=== PATIENT | female | born 1980 | race Caucasian/White ===

== ENCOUNTER 2025-10-16 07:50 | Emergency (ER) | payer BC ==
[~2025-10-16] VITALS: Ht 162.6 cm; Wt 59.0 kg
[2025-10-16 08:02] VITALS: TEMP 98.3
[2025-10-16 08:24] LABS: PLATELET COUNT (AUTO) 267 K/uL (150-450); RED BLOOD CELL COUNT(AUTO) 4.54 MIL/uL (4.0-5.2); RED CELL DISTRIBUTION WIDTH 13.3 % (11.5-15.0); WHITE BLOOD COUNT (AUTO) 10.6 K/uL (4.3-11.0)
[2025-10-16] MEDS: IV NS 0.9% 1,000 ML BAG IV ONE (08:28)
[2025-10-16 08:29] LABS: PREGNANCY TEST URINE QUAL NEGATIVE (NEGATIVE)
[2025-10-16 08:41] LABS: CALCIUM, SERUM 9.8 mg/dL (8.5-10.1); CREATININE 0.9 mg/dL (0.6-1.3); PHOSPHORUS 3.5 mg/dL (2.5-4.9); SODIUM SERUM 138 mmol/L (136-145); UREA NITROGEN, BLOOD 8 mg/dL (7-18)
[2025-10-16 08:44] LABS: ASPARTATE AMINOTRANSFERASE 26 U/L (15-37); TOTAL PROTEIN, SERUM 8.3 g/dL (6.4-8.2)
[2025-10-16 10:27] VITALS: BP 112/50; O2SAT 98
== END 2025-10-16 10:05 | disposition home or self-care (01) ==
LOC: ER 07:57
DX: E06.3 Autoimmune thyroiditis (principal); R53.83 Other fatigue
CPT/HCPCS: 99285; 96360; 71045; 93005; 85025; 80048; 80076; 83735; 84100; 84703; 36415; 84443; 84484; 82962; J7030